=== PATIENT | female | born 1990 | race Caucasian/White ===

== ENCOUNTER 2016-09-30 18:40 | Emergency (ER) | payer OTHER ==
--- NOTE | ~2016-09-30 | CR72 ---
[facility] A Service of [facility] & [facility] RADIOLOGY TEXT RESULTS PATIENT: YORDY FOSTER LOCATION: [facility] : [birth year] UNIT #: [id number] AGE: [address]: Moody Nazario MD SEX: F ORDER DR: [id number] [facility] [address] [place], [place] [address] [id number] E MR#: [id number] Acc #: [id number] NAME: YORDY FOSTER. : 1990 SEX: F STUDY DATE/TIME: 09/30/2016 21:21 UNIT: [facility] ROOM: STUDY DESCRIPTION: CR Chest Single View Portable Attending Physician: Moody Nazario M.D. Ordering Physician: Moody Nazario M.D. Primary Care Physician: Primary Care Physician No MEDICAL IMAGING REPORT This report is preliminary unless electronic signature is present EXAM Portable chest HISTORY Chest pain and shortness of air for 3 days. FINDINGS Cardiac size and pulmonary vascularity are normal. No infiltrates or effusions. Old healed fracture mid shaft right clavicle. IMPRESSION No acute findings. Dictated by... Leo Ledezma M.D. THIS IS AN ELECTRONICALLY VERIFIED REPORT Leo Ledezma M.D. at 10/01/2016 11:10 PM DFL/eric TD: 10/01/2016 02:10 JOB #: [id number] MEDICAL IMAGING REPORT Page 1 of 1 COPY
--- NOTE | ~2016-09-30 | EKG ---
PATIENT: YORDY FOSTER UNIT #: [id number] Ventricular Rate: 101 BPM Atrial Rate: 101 BPM P-R Interval: 124 ms QRS Duration: 66 ms Q-T Interval: 346 ms QTC Calculation(Bezet): 448 ms P Christopher: 28 degrees Calculated R Christopher: 31 degrees Calculated T Christopher: 18 degrees Diagnosis Line: Sinus tachycardia Diagnosis Line: Otherwise normal ECG Diagnosis Line: When compared with ECG of 26-SEP-2015 14:38, Diagnosis Line: No significant change was found Diagnosis Line: Confirmed by SARA RAMIREZ MD ([id number]) on Diagnosis Line: 09/30/2016 10:59:28 PM INTERPRETING MD: ARIELA
[~2016-09-30 18:40] MED LIST: AMOXICILLIN500 M1 PO; BENTYL10 MG PO; DOXYCYCLINE PO; IBUPROFEN800 MG PO; KETOPROFEN PO; MEDROL PO; MOTRIN600 M1 PO; MOTRIN600 MG PO; NAPROSYN375 MG PO; PHENERGAN DM1 ML PO; PRILOSEC40 MG PO; STRATTERA PO; ULTRAM PO; VOLTAREN75 MG PO; ZITHROMAX PO; ZOFRANODT PO; [UNRECOGNIZED DRUG - REMARK]
[2016-09-30 22:00] LABS: POC - CKMB <1.0 ng/mL (0.0-7.9); POC - TROPONIN <0.05 ng/mL (<=0.05)
[2016-09-30 22:24] LABS: BASOPHIL% 0.3 % (0-2.5); EOSINOPHIL# 0.2 X10e3 (0-0.7); EOSINOPHIL% 1.7 % (0.0-7.0); HEMATOCRIT 29.9 % (35.0-45.0); HEMOGLOBIN 9.4 gm/dL (12.0-16.0); LYMPHOCYTE# 2.2 X10e3 (1.0-3.5); LYMPHOCYTE% 17.8 % (17.0-45.0); MEAN CELL VOLUME 77.2 FL (83-96); MEAN CORPUSCULAR HEMOGLOBIN 24.4 PG (28-34); MEAN CORPUSCULAR HGB CONC 31.6 g/dL (30-36); MEAN PLATELET VOLUME 9.7 FL (6.5-11.5); MONOCYTE# 0.8 X10e3 (0-1.0); MONOCYTE% 6.5 % (3.0-12.0); NEUTROPHIL# 9.3 X10e3 (1.5-7.1); NEUTROPHIL% 73.7 % (40-75); PLATELET COUNT 165 X10e3 (140-420); RED BLOOD COUNT 3.87 X10e (3.90-5.30); RED CELL DISTRIBUTION WIDTH 14.2 % (11.0-15.5); WHITE BLOOD COUNT 12.6 X10e3 (4.0-10.5)
[2016-09-30 22:25] LABS: DIFF IND NO
[2016-09-30 22:42] LABS: INR 0.9; PROTHROMBIN TIME (PATIENT) 9.8 SECONDS (9.6-11.5)
[2016-09-30 22:48] LABS: BILIRUBIN,TOTAL 0.5 mg/dL (0.2-2.0); BUN/CREATININE RATIO 15.71; CALCIUM SERUM 8.7 mg/dL (8.4-10.2); CREATININE SERUM 0.7 mg/dL (0.6-1.4); GLOM FILT RATE Estimated 120.4 mL/min (>60); POTASSIUM 3.5 mmol/L (3.5-5.1); PROTEIN TOTAL SERUM 6.4 g/dL (6.0-8.3)
[2016-09-30 22:54] LABS: BILIRUBIN, DIRECT 0.1 mg/dL (0.0-0.2); BILIRUBIN,INDIRECT 0.4 mg/dL (0.0-0.9)
== END 2016-09-30 23:59 | disposition home or self-care (01) ==
LOC: CED 18:40
PROVIDERS: Emergency Medicine
DX: O99.513 Diseases of the respiratory system complicating pregnancy, third trimester (principal); R09.1 Pleurisy; O99.333 Smoking (tobacco) complicating pregnancy, third trimester; F31.9 Bipolar disorder, unspecified; Z3A.28 28 weeks gestation of pregnancy; Z88.5 Allergy status to narcotic agent; Z91.040 Latex allergy status; Z88.8 Allergy status to other drugs, medicaments and biological substances
CPT/HCPCS: 36415; 71010; 80048; 80076; 82553; 84484; 85025; 85379; 85610; 85730; 93005; 96360; 99284

== ENCOUNTER 2016-12-11 15:03 | Emergency (ER) | payer OTHER ==
[~2016-12-11] VITALS: Ht 160 cm; Wt 82.5 kg
--- NOTE | ~2016-12-11 | CR21 ---
[facility] A Service of [facility] & [facility] RADIOLOGY TEXT RESULTS PATIENT: YORDY FOSTER LOCATION: [facility] : [birth year] UNIT #: [id number] AGE: [address]: Vasile Braun MD SEX: F ORDER DR: [id number] [facility] [address] [place], [place] [address] [id number] E MR#: [id number] Acc #: [id number] NAME: YORDY FOSTER. : 1990 SEX: F STUDY DATE/TIME: 12/11/2016 19:26 UNIT: [facility] ROOM: STUDY DESCRIPTION: CR Ankle Min 3 Views Rt Attending Physician: Vasile Braun M.D. Ordering Physician: Vasile Braun M.D. Primary Care Physician: Primary Care Physician No MEDICAL IMAGING REPORT This report is preliminary unless electronic signature is present EXAM Right ankle 3 views HISTORY Medial ankle pain and swelling after a fall 2 days ago. Twisting injury. FINDINGS AP, lateral, and oblique projections of the ankle show satisfactory integrity of the joint mortise with a smooth articular surface. There is no identifiable fracture, dislocation, or radiopaque foreign body. IMPRESSION Normal ankle. Dictated by... Leo Ledezma M.D. THIS IS AN ELECTRONICALLY VERIFIED REPORT Leo Ledezma M.D. at 12/12/2016 11:24 PM MAXINE/tejal TD: 12/12/2016 01:43 JOB #: [id number] MEDICAL IMAGING REPORT Page 1 of 1 COPY
== END 2016-12-11 20:40 | disposition home or self-care (01) ==
LOC: CED 15:03
DX: O9A.213 Injury, poisoning and certain other consequences of external causes complicating pregnancy, third trimester (principal); S93.421A Sprain of deltoid ligament of right ankle, initial encounter; Z3A.38 38 weeks gestation of pregnancy; W01.0XXA Fall on same level from slipping, tripping and stumbling without subsequent striking against object, initial encounter; Y92.009 Unspecified place in unspecified non-institutional (private) residence as the place of occurrence of the external cause
CPT/HCPCS: 29345; 73610; 99283